=== PATIENT | female | born 1980 | race Caucasian/White ===

== ENCOUNTER → 2017-10-30 | Outpatient (CLI) | payer BC ==
[~2017-10-30] MED LIST: CLIN150; HYDACE5; NAPR500 PO; OMEP20ER PO; OXYACE5T PO; PENVK500 PO; RXLORA1 PO; RXNAPNA550 PO; RXOXYACE PO; RXPROM25 PO
[2017-11-01 12:11] LABS: HPV Genotype 16 Not Detected (NOTDET); HPV Genotype 18 Not Detected (NOTDET)
[2017-11-04 08:53] LABS: HPV High Risk Other Not Detected (NOTDET)
== END ==
LOC: LAB 10:08
PROVIDERS: Advanced Practice Midwife
DX: Z01.419 Encounter for gynecological examination (general) (routine) without abnormal findings (principal)
CPT/HCPCS: 87624; G0123